=== PATIENT | male | born 1985 | race Caucasian/White ===

== ENCOUNTER 2018-04-14 17:38 | Emergency (ER) | payer MEDICAID ==
--- NOTE | 2018-04-14 18:07 | EDPHY ---
General Time Seen by Provider: 04/14/18 18:00 Narrative: CLINICAL IMPRESSION: Alcohol intoxication ASSESSMENT/PLAN: 32-year-old male brought to the emergency department by EMS and [employer] on an ARC hold. Patient was found at the bottom of the gentle 10 ft reveal where he had apparently rolled down while intoxicated. He was unable to ambulate back to the top of the review in to his belongings. Patient arrives significantly intoxicated but reporting no pain. He was allowed to sober. He ambulated with a steady gait to the restroom. Reassessment of the patient shows no physical signs of trauma, closed head injury, laceration or abrasions. Patient had no reports of pain on reassessment. He will be [facility] to the [facility] with a Librium prepack. PCP referrals given. Warning signs return to ED sooner outlined in discharge. DIFFERENTIAL DX: Differential diagnosis for this patient includes but not limited to alcohol intoxication, alcohol abuse, alcohol withdrawal, other substance abuse or withdrawal, toxidrome or medication overdose, CVA, head trauma, hyponatremia, hypoglycemia or other electrolyte abnormality. ED PROCEDURES: See lab and/or imaging results below ED COURSE: 6:00 p.m.: Patient seen and evaluated by myself. Repeat heart rate by myself is at 100. Patient is heavily intoxicated, unable to provide history. He has no physical signs of trauma or head injury. He is on an ARC hold by [employer]. Unable to ambulate on his own at this time. Will allow patient to sober and reassess. 6:58 p.m.: Patient seen by myself ambulating to the restroom with steady gait. Reassessed by myself, no obvious signs of trauma, moving all extremities without obvious distress. Speaking in clear sentences, reports no pain. I will discharge this patient to the [facility] with a librium prepack. CHIEF COMPLAINT: Intoxication, on ARC hold HPI: 32-year-old male presents to the emergency department by EMS on an ARC hold by [place] police. According to EMS and [place] police notes, patient was found at the bottom of a reveal in where he allegedly rolled approximately 10 ft down a hill. Patient is heavily intoxicated and admitted to police that he used marijuana today. He apparently tried to get to his hands and knees and then fell over. He needed assistance walking back up the [place] where his belongings were. Patient is significantly intoxicated on my initial evaluation and difficult to obtain history from. He has no physical complaints at this time. He states "I want to go home". Had explained to the patient that he is on an ARC hold and cannot leave until he is sober enough for re-evaluation. PAST MEDICAL HISTORY: Unable to obtain See nurse/triage notes for additional history if applicable Pertinent Past Surgical History: None reported Family History: Noncontributory Social History: Drinks alcohol REVIEW OF SYSTEMS: All other systems negative Constitutional: No fever, no chills, appetite change. Eyes: No discharge, vision change ENT: No sore throat, congestion, ear pain. Cardiovascular: No chest pain, no palpitations. Respiratory: No cough, no shortness of breath. Gastrointestinal: No abdominal pain, no vomiting, diarrhea. Genitourinary: No hematuria, dysuria, flank pain, pelvic pain Musculoskeletal: No back pain, joint swelling, joint pain, myalgias. Skin: No rashes, color change. Neurological: No headache, dizziness, weakness. PHYSICAL EXAM: General Appearance: Alert, disoriented, heavily intoxicated, laying on his side in hallway bed 2, dirty, disheveled, tachycardic, hypotensive, response to verbal stimuli. Per EMS, there were no obvious signs of trauma HEENT: TMs are clear bilaterally no perforation or FB, no injection, no evidence of serous or mucopurulent otitis. Oropharynx clear is no erythema or exudates, no tonsillar hypertrophy or asymmetry. Dentition without abnormality. No palpable scalp contusion, hematoma or laceration Eyes: [PERRLA, no acute vision change, nystagmus, swelling, discharge, pain or photosensitivity. Neck: Supple, nontender, no lymphadenopathy, no midline pain, FROM, no meningismus. Respiratory: There are no retractions, lungs are clear to auscultation. No chest wall pain to palpation. No rib pain or crepitus Cardiac: Slightly tachycardic with heart rate by myself at 100, normal rhythm, no murmurs or gallops. Gastrointestinal: Abdomen is soft, nontender, bowel sounds normal, no masses/ hernia, no rigidity, guarding or focal peritoneal findings. Neurological: Alert to person only, unable to participating cranial nerve testing secondary to intoxication Skin: Warm, dry, no rashes, no nodules on palpation. No obvious laceration, abrasion or sign of trauma Musculoskeletal: Extremities are symmetrical, full range of motion, no tenderness, deformity, swelling, or erythema. Psychiatric: Patient is oriented X 3, there is no agitation. MEDICAL DECISION MAKING: Patient was seen independently. Secondary supervising physician at time of evaluation was Dr. Rosen . Diagnosis: Alcohol intoxication . New, requires workup Summary: See Assessment and Plan for summary of ED visit Patient Progress: Stable. - History Smoking Status: Never smoked - Objective Vital Signs: Initial Vital Signs Temperature (C) 36.4 C 04/14/18 17:38 Heart Rate 115 H 04/14/18 17:38 Respiratory Rate 20 04/14/18 17:38 Blood Pressure 95/64 L 04/14/18 17:38 O2 Sat (%) 98 04/14/18 17:38 O2 Delivery Mode Room Air Allergies/Adverse Reactions: haloperidol [From Haldol] Allergy (Verified 04/14/18 17:43) Home Medications: Medication Instructions Recorded NK [No Known Home Meds] 04/14/18 Departure - Departure Disposition: Law Enforcement/Court/[facility] Clinical Impression: Alcohol intoxication Qualifiers: Complication of substance-induced condition: uncomplicated Qualified Code(s): F10.920 - Alcohol use, unspecified with intoxication, uncomplicated Condition: Good Instructions: Chlordiazepoxide/Clidinium (By mouth), Alcohol Intoxication (ED) Additional Instructions: DISCHARGE INSTRUCTIONS FROM YOUR DOCTOR Thank you for visiting our emergency department today. You were treated by a physician television production assistant today and your case was reviewed with our ED Attending physician. Please keep in mind that discharge from the emergency department does not mean that there is nothing wrong - it simply means that we have not identified an emergency condition that requires further evaluation or treatment in the hospital. You should always plan to follow up with primary care for re- evaluation of your condition in the next 2-3 days. If you have been referred to a specialist, please call as soon as possible (today or tomorrow) to schedule your follow up appointment at the appropriate time. YOU ARE BEING DISCHARGED TO THE [facility] ON AN ALCOHOL HOLD WITH POLICE. PLEASE DECREASE YOUR ALCOHOL INTAKE. YOU HAD NO SIGNS OF TRAUMA FROM YOUR FALL TODAY. RETURN TO THE EMERGENCY DEPARTMENT FOR ANY PAIN, SEVERE HEADACHE, SHORTNESS OF BREATH, OR ANY OTHER CONCERN. People present with illnesses and injuries in different ways, and it is always possible that we have missed something. You may always return for re-evaluation if symptoms worsen or if they are not improving or if you develop new/different symptoms. Again, thank you for choosing our emergency department. We hope that you feel better. Referrals: NONE *PRIMARY CARE P,. [Primary Care Provider] - As per Instructions [facility],. [Clinic] - As per Instructions
[2018-04-14] MEDS ORDERED: CHLORDIAZEPOXIDE 25MG PREPK#6 BTL TAKEHOME ONE (19:04)
[2018-04-14 19:38] VITALS: BP 138/84
== END 2018-04-14 19:50 ==
DX: F10.920 Alcohol use, unspecified with intoxication, uncomplicated (principal)

== ENCOUNTER 2018-04-29 06:30 | Emergency (ER) | payer MEDICAID ==
[2018-04-29] MEDS ORDERED: OLANZapine 5 MG TAB PO ONE (06:41)
--- NOTE | 2018-04-29 06:44 | EDPHY ---
H & P - Medical/Surgical History Hx Asthma: No Hx Chronic Respiratory Disease: No Hx Diabetes: No Hx Cardiac Disease: No Hx Renal Disease: No Hx Cirrhosis: No Hx Alcoholism: Yes Hx HIV/AIDS: No Hx Splenectomy or Spleen Trauma: No Other PMH: ETOH - Social History Smoking Status: Never smoked Time Seen by Provider: 04/29/18 06:40 HPI/ROS: Chief Complaint: Hallucinating, "not doing well" HPI: 32-year-old male who reports a history of bipolar disorder, schizoaffective type states that he has been off his medications for several weeks. He states that he is hallucinating, increasingly anxious and depressed. Denies being suicidal but does not care if he would . No active homicidal or suicidal thoughts. Per EMS was responding to internal stimuli[place] that [place] call an ambulance. Also has a history of opioid abuse, had been on Suboxone in the past pain has recently relapsed. He is interested in starting again. He is presenting requesting a mental health evaluation. Patient is calm and conversant. ROS: 10 systems were reviewed and were negative except those elements noted in the HPI. PMH: Bipolar disorder, schizoaffective type Social History: Denies smoking, positive heroin use Family History: non-contributory Physical Exam: Gen: Awake, Alert, No Distress, disheveled, calm, HEENT: Nose: no rhinorrhea Eyes: PERRLA, EOMI Mouth: Moist mucosa Neck: Supple, no JVD Chest: nontender, lungs clear to auscultation Heart: S1, S2 normal, no murmur Abd: Soft, non-tender, no guarding Back: no CVA tenderness, no midline tenderness Ext: no edema, non-tender Skin: no rash Neuro: CN II-XII intact, Sensation grossly intact, Strength 5/5 in bilateral upper and lower extremities (Lev Avelar) Constitutional: Initial Vital Signs Temperature (C) 36.9 C 04/29/18 06:50 Heart Rate 101 H 04/29/18 06:50 Respiratory Rate 20 04/29/18 06:50 Blood Pressure 123/82 H 04/29/18 06:50 O2 Sat (%) 95 04/29/18 06:50 O2 Delivery Mode Room Air Allergies/Adverse Reactions: haloperidol [From Haldol] Allergy (Verified 04/14/18 17:43) Home Medications: Medication Instructions Recorded Seroquel 04/29/18 Zyprexa 04/29/18 Medical Decision Making ED Course/Re-evaluation: 32-year-old male reporting history of bipolar disorder, schizoaffective did type presenting complaining of feeling disabled he is not suicidal or homicidal. He is able to carry on an appropriate conversation. He does not meet criteria for mental health hold. Will obtain laboratory evaluations for mental health evaluation. 0700 Patient signed out to Dr. Samayoa pending mental health evaluation. No issues during my care this patient overnight. (Lev Avelar) 9:50 a.m. Patient seen my psychiatric hand mounter and was too sleepy to participate. I went in and re-evaluated patient, he is very sleepy but states he does want to be seen by a mental health hand mounter so we will try a again. 1045 seen again by mental health workers. Patient still minimally cooperative although denies suicidal ideation. Has follow-up with his case coordinator tomorrow morning. Has eaten and recheck of blood sugar shows it has improved. Stable for discharge. (Sarah Samayoa) Differential Diagnosis: Differential diagnosis includes but is not limited to bipolar disorder, substance abuse, depression, malingering. Patient minimally receptive to formal psychiatric evaluation. Ultimately patient was discharged as he seem to be wanting a place to sleep more than psychiatric help. Understands he has follow-up tomorrow and is welcome back if symptoms worsen. Stable for discharge. (Sarah Samayoa) - Data Points Laboratory Results: Laboratory Results 04/29/18 07:15 04/29/18 07:15 04/29/18 04/29/18 04/29/18 10:21 08:11 07:15 WBC RBC Hgb Hct MCV MCH MCHC RDW Plt Count MPV Neut % (Auto) Lymph % (Auto) Logan % (Auto) Eos % (Auto) Baso % (Auto) Nucleat RBC Rel Count Absolute Neuts (auto) Absolute Lymphs (auto) Absolute Monos (auto) Absolute Eos (auto) Absolute Basos (auto) Absolute Nucleated RBC Immature Gran % Immature Gran # Sodium 137 mEq/L mEq/L (135-145) Potassium 3.9 mEq/L mEq/L (3.5-5.2) Chloride 102 mEq/L mEq/L (97-110) Carbon Dioxide 21 mEq/l L mEq/l (22-31) Anion Gap 14 mEq/L mEq/L (6-14) BUN 21 mg/dL mg/dL (7-23) Creatinine 0.9 mg/dL mg/dL (0.7-1.3) Estimated GFR > 60 Glucose 69 mg/dL L mg/dL (70-100) POC Glucose 100 mg/dL mg/dL (70-100) Calcium 9.5 mg/dL mg/dL (8.5-10.4) Urine Opiates Screen NEGATIVE (NEGATIVE) Urine Barbiturates NEGATIVE (NEGATIVE) Ur Phencyclidine Scrn NEGATIVE (NEGATIVE) Ur Amphetamine Screen NEGATIVE (NEGATIVE) U Benzodiazepines Scrn NEGATIVE (NEGATIVE) Urine Cocaine Screen NEGATIVE (NEGATIVE) U Marijuana (THC) Screen NON-NEGATIVE H (NEGATIVE) Ethyl Alcohol < 10 mg/dL mg/dL (0-10) 04/29/18 07:15 WBC 11.60 10^3/uL H 10^3/uL (3.80-9.50) RBC 4.57 10^6/uL 10^6/uL (4.40-6.38) Hgb 14.9 g/dL g/dL (13.7-17.5) Hct 44.2 % % (40.0-51.0) MCV 96.7 fL fL (81.5-99.8) MCH 32.6 pg pg (27.9-34.1) MCHC 33.7 g/dL g/dL (32.4-36.7) RDW 12.9 % % (11.5-15.2) Plt Count 339 10^3/uL 10^3/uL (150-400) MPV 8.8 fL fL (8.7-11.7) Neut % (Auto) 77.7 % H % (39.3-74.2) Lymph % (Auto) 11.6 % L % (15.0-45.0) Logan % (Auto) 9.1 % % (4.5-13.0) Eos % (Auto) 0.5 % L % (0.6-7.6) Baso % (Auto) 0.6 % % (0.3-1.7) Nucleat RBC Rel Count 0.0 % % (0.0-0.2) Absolute Neuts (auto) 9.01 10^3/uL H 10^3/uL (1.70-6.50) Absolute Lymphs (auto) 1.34 10^3/uL 10^3/uL (1.00-3.00) Absolute Monos (auto) 1.06 10^3/uL H 10^3/uL (0.30-0.80) Absolute Eos (auto) 0.06 10^3/uL 10^3/uL (0.03-0.40) Absolute Basos (auto) 0.07 10^3/uL 10^3/uL (0.02-0.10) Absolute Nucleated RBC 0.00 10^3/uL 10^3/uL (0-0.01) Immature Gran % 0.5 % % (0.0-1.1) Immature Gran # 0.06 10^3/uL 10^3/uL (0.00-0.10) Sodium Potassium Chloride Carbon Dioxide Anion Gap BUN Creatinine Estimated GFR Glucose POC Glucose Calcium Urine Opiates Screen Urine Barbiturates Ur Phencyclidine Scrn Ur Amphetamine Screen U Benzodiazepines Scrn Urine Cocaine Screen U Marijuana (THC) Screen Ethyl Alcohol Medications Given: Discontinued Medications Olanzapine (Olanzapine) 5 mg PO ONCE ONE Stop: 04/29/18 06:42 Last Admin: 04/29/18 06:46 Dose: 5 mg Point of Care Test Results: Chemistry 04/29/18 10:21 POC Glucose 100 mg/dL mg/dL (70-100) Departure - Departure Referrals: NONE *PRIMARY CARE P,. [Primary Care Provider] - As per Instructions
[2018-04-29 07:27] LABS: PLATELET COUNT 339 10^3/uL (150-400)
[2018-04-29 11:06] VITALS: BP 100/61
== END 2018-04-29 11:06 | disposition home or self-care (01) ==
LOC: EDUNIT# → EEVIPCON 06:30
DX: F20.0 Paranoid schizophrenia (principal)
CPT/HCPCS: 80305; G0480